=== PATIENT | male | born 1995 | race African-American/Black ===

== ENCOUNTER 2017-03-26 23:49 | Emergency (ER) | payer SELFPAY ==
[~2017-03-26] VITALS: Ht 177.8 cm; Wt 91.0 kg
[~2017-03-26 23:49] MED LIST: HYDR25 PO; MONT10TA2 PO; PRED50 PO; PRIL10CA PO; TRIA.1%T TOP
[2017-03-26 23:51] VITALS: BP 151/92; PULSE 94; RESP 20; TEMP 98.1; O2SAT 94
[2017-03-27] MEDS ORDERED: ALBUAER3 INH ×4 (00:12→02:26)
[2017-03-27] MEDS ORDERED: ADVA100A INH ×2 (00:12)
[2017-03-27] MEDS ORDERED: ALBU0.08 NEB ×2 (00:12)
[2017-03-27] MEDS ORDERED: MONT10TA2 PO ×2 (00:12)
[2017-03-27] MEDS ORDERED: predniSONE 50 MG TAB PO ONE ×2 (00:15)
[2017-03-27 00:18] VITALS: O2SAT 95
[2017-03-27] MEDS: RESP: ALBUTEROL 2.5 MG/IPRATROPIUM 0.5 MG NEB (SCH) INH ×2 (00:18)
--- NOTE | 2017-03-27 02:22 | PD ---
HPI Chief Complaint: Chest Pain Time Seen by Provider: 00:10 Travel History International Travel<30 days: No Contact w/Intl Traveler<30days: No Traveled to known affect area: No History of Present Illness HPI This is a 21-year-old male who presents to the emergency department with breath , constant, moderate severity, described as wheezing associated with a productive cough with some clear sputum. He denies any fevers or chills. He has a history of asthma and currently is out of his prescriptions. He says his been hospitalized for his asthma in the past but never intubated. PFSH Past Medical History Hx Anticoagulant Therapy: No Asthma: Yes Cardiovascular Problems: No Chemotherapy: No Cerebrovascular Accident: No Diabetes: No Diminished Hearing: No Respiratory: Yes (ASTHMA) Immunizations Current: Yes Tetanus Vaccination: Unknown Influenza Vaccination: No Past Surgical History Eye Surgery: Yes (BILAT CATARACT REMOVAL) Social History Alcohol Use: Yes Tobacco Use: Yes Substance Use: Yes (MARIJUANA) Allergies-Medications (Allergen,Severity, Reaction): Coded Allergies: penicillin G (Unverified Allergy, Unknown, 03/26/17) Reported Meds & Prescriptions Reported Meds & Active Scripts Active Reported Albuterol Neb (Albuterol Sulfate) 2.5 Mg/3 Ml Neb 2.5 Mg NEB Q4HR NEB PRN Proair Hfa 8.5 GM Inh (Albuterol Sulfate) 90 Mcg/Act Aer 2 Puff INH Q4-6H PRN 108 mcg/actuation Advair Diskus Inh (Fluticasone-Salmeterol Inh) 100-50 Mcg/Blist Aer Unknown Dose INH BID Rinse mouth after use. Singulair (Montelukast Sodium) 10 Mg Tab 10 Mg PO HS Review of Systems Except as stated in HPI: all other systems reviewed are Neg Physical Exam Narrative GENERAL:Well appearing, no acute distress SKIN: Focused skin assessment warm and dry. HEAD: Atraumatic. Normocephalic. EYES: Pupils equal and round. No injection or drainage. ENT: Moist mucous membranes NECK: Trachea midline. CARDIOVASCULAR: Regular rate and rhythm. No murmur appreciated. RESPIRATORY: Diffuse wheezing. GASTROINTESTINAL: Abdomen soft, non-tender, nondistended. MUSCULOSKELETAL: No obvious deformities. NEUROLOGICAL: Awake and alert. No obvious cranial nerve deficits. Moving all extremities. PSYCHIATRIC: Appropriate mood and affect; insight and judgment normal. Data Data Last Documented VS Vital Signs Date Time Temp Pulse Resp B/P (MAP) Pulse Ox O2 Delivery O2 Flow Rate FiO2 03/27/17 00:18 95 21 03/27/17 00:12 22 Room Air 03/26/17 23:51 98.1 94 151/92 (111) Orders Orders Prednisone (Deltasone) (03/27/17 00:15) Albuterol-Ipratropium Neb (Duoneb Neb) (03/27/17 00:15) MDM Medical Decision Making Medical Screen Exam Complete: Yes Emergency Medical Condition: Yes Interpretation(s) Afebrile, mild tachycardia, hypertensive Differential Diagnosis Acute asthma exacerbation, pneumonia, bronchitis Narrative Course This is a 21-year-old male who presents to the emergency department with an acute asthma exacerbation. He is diffusely wheezing on arrival with no hypoxia. He was given serial bronchodilator treatments and prednisone and his reassessment is much improved. Patient will be discharged home. Diagnosis Primary Impression: Acute asthma exacerbation Qualified Codes: J45.901 - Unspecified asthma with (acute) exacerbation Patient Instructions: General Instructions Additional Instructions: If you develop severe shortness of breath, chest pain, or difficulty breathing return to the emergency department. Use albuterol every 4 hours for the next 2 days. Then use as needed for wheezing. Complete your course of steroids. Follow up with your primary care physician in 2-3 days if your symptoms have not improved. Med/Other Pt SpecificInfo: Prescription(s) given Scripts Albuterol 8.5 GM Inh (Proair Hfa 8.5 GM Inh) 90 Mcg/Act Aer 2 PUFF INH Q4-6H Y for SHORTNESS OF BREATH, #1 INHALER 0 Refills 108 mcg/actuation Prov: Yany Santiago MD 03/27/17 Prednisone (Prednisone) 20 Mg Tab 40 MG PO DAILY, #10 TAB 0 Refills Take 40 mg (2 tablets) daily for 5 days Prov: Yany Santiago MD 03/27/17 Disposition: 01 DISCHARGE HOME Condition: Stable Yany Santiago MD Mar 27, 2017 02:22
[2017-03-27] MEDS ORDERED: PRED20 PO ×2 (02:26)
== END 2017-03-27 02:33 | disposition home or self-care (01) ==
LOC: NEPE 23:49
DX: J45.901 Unspecified asthma with (acute) exacerbation (principal); Z72.0 Tobacco use
CPT/HCPCS: 94640; 94664; 99285; J7512

== ENCOUNTER 2017-05-27 10:23 | Emergency (ER) | payer SELFPAY ==
[~2017-05-27] VITALS: Ht 172.7 cm; Wt 82.0 kg
[~2017-05-27 10:23] MED LIST changes: +ADVA100A INH; +ALBU0.08 NEB; +ALBUAER3 INH; -HYDR25 PO; +PRED20 PO; -PRED50 PO; -PRIL10CA PO; -TRIA.1%T TOP
[2017-05-27 10:26] VITALS: BP 173/81; PULSE 102; RESP 26; TEMP 96.7; O2SAT 96
[2017-05-27] MEDS ORDERED: RESP: ALBUTEROL 2.5 MG/IPRATROPIUM 0.5 MG NEB (SCH) ONE (10:43)
[2017-05-27 10:51] VITALS: BP 166/86; PULSE 82; RESP 20; O2SAT 100
[2017-05-27] MEDS ORDERED: SODIUM CHLORIDE 0.9% FLUSH 10 ML FLUSH IVF PRN (11:15)
[2017-05-27] MEDS ORDERED: methylPREDNISolone SOD SUCC 125 MG/2 ML VIAL IM ONE (11:15)
[2017-05-27] MEDS ORDERED: RESP: ALBUTEROL 2.5 MG/3 ML NEB (SCH) INH ONE (11:15)
[2017-05-27] MEDS ORDERED: RESP: ALBUTEROL 2.5 MG/IPRATROPIUM 0.5 MG NEB (SCH) INH ONE (11:15)
--- NOTE | 2017-05-27 11:39 | RADRPT ---
EXAM DATE/TIME: 05/27/2017 11:16 [facility] COMPARISON: No previous studies available for comparison. INDICATIONS : Chest pain. MEDICAL HISTORY : None. SURGICAL HISTORY : None. ENCOUNTER: Initial ACUITY: 1 week PAIN SCORE: 6/10 LOCATION: middle chest. FINDINGS: 2 AP portable erect views of the chest demonstrates the lungs to be symmetrically aerated without mayra dence of mass, infiltrate or effusion. The cardiomediastinal contours are unremarkable. Osseous str uctures are intact. CONCLUSION: No acute disease. Chito Stone MD on May 27, 2017 at 11:37 Board Certified Radiologist. This report was verified electronically.
[2017-05-27 11:40] VITALS: BP 166/86; PULSE 72; RESP 20; O2SAT 100
[2017-05-27] MEDS ORDERED: MEDR4PAK PO (11:48)
[2017-05-27] MEDS ORDERED: ZITHTAB PO (11:48)
[2017-05-27] MEDS ORDERED: ALBUAER3 INH (11:48)
--- NOTE | 2017-05-27 11:52 | PD ---
HPI Chief Complaint: Respiratory Distress Time Seen by Provider: 10:55 Travel History International Travel<30 days: No Contact w/Intl Traveler<30days: No Traveled to known affect area: No History of Present Illness HPI 22-year-old male with history of asthma, presents here with asthma exacerbation. Patient states over the last 2 days he's had progressive shortness of breath with wheezing. He also reports productive cough with yellow -green phlegm. He denies any fevers, chills. He denies any dizziness. He denies any chest pain, chest pressure. The patient states he lost his inhaler. He denies tobacco use but does report marijuana use. PFSH Past Medical History Hx Anticoagulant Therapy: No Asthma: Yes Cardiovascular Problems: No Chemotherapy: No Cerebrovascular Accident: No Diabetes: No Diminished Hearing: No Respiratory: Yes (ASTHMA) Immunizations Current: Yes Influenza Vaccination: No Past Surgical History Eye Surgery: Yes (BILAT CATARACT REMOVAL) Social History Alcohol Use: Yes Tobacco Use: Yes Substance Use: Yes (MARIJUANA) Allergies-Medications (Allergen,Severity, Reaction): Coded Allergies: Penicillins (Verified Allergy, Unknown, 05/27/17) penicillin G (Unverified Allergy, Unknown, 05/27/17) Reported Meds & Prescriptions Reported Meds & Active Scripts Active Zithromax Z-Delta (Azithromycin) 250 Mg Dspk 250 Mg PO DIRECTED 500 MG (2 tabs) day 1, then 1 tab days 2-5. Medrol Dosepak (Methylprednisolone) 4 Mg Dspk 4 Mg PO DIRECTED Per Pharmacist direction Proair Hfa 8.5 GM Inh (Albuterol Sulfate) 90 Mcg/Act Aer 2 Puff INH Q4-6H PRN 108 mcg/actuation Proair Hfa 8.5 GM Inh (Albuterol Sulfate) 90 Mcg/Act Aer 2 Puff INH Q4-6H PRN 108 mcg/actuation Prednisone 20 Mg Tab 40 Mg PO DAILY Take 40 mg (2 tablets) daily for 5 days Reported Albuterol Neb (Albuterol Sulfate) 2.5 Mg/3 Ml Neb 2.5 Mg NEB Q4HR NEB PRN Advair Diskus Inh (Fluticasone-Salmeterol Inh) 100-50 Mcg/Blist Aer Unknown Dose INH BID Rinse mouth after use. Singulair (Montelukast Sodium) 10 Mg Tab 10 Mg PO HS Review of Systems Except as stated in HPI: all other systems reviewed are Neg General / Constitutional: No: Fever, Chills HENT: No: Headaches, Lightheadedness Cardiovascular: No: Palpitations Respiratory: Positive: Cough, Shortness of Breath (productive yellow-green phlegm), Wheezing Gastrointestinal: No: Nausea, Vomiting, Abdominal Pain Musculoskeletal: No: Weakness, Pain Neurologic: No: Weakness, Headache Physical Exam Narrative GENERAL: Well-nourished, well-developed patient, in mild respiratory discomfort. SKIN: Focused skin assessment warm/dry. HEAD: Normocephalic last atraumatic. EYES: No scleral icterus. No injection or drainage. NECK: Supple, trachea midline. No JVD or lymphadenopathy. CARDIOVASCULAR: Regular rate and rhythm without murmurs, gallops, or rubs. RESPIRATORY: Fine wheezes heard at the lower lung vance. No Rales appreciated. GASTROINTESTINAL: Abdomen soft, non-tender, nondistended. MUSCULOSKELETAL: No cyanosis, or edema. NEUROLOGICAL: Awake and alert. Cranial nerves II through XII intact. Motor and sensory grossly within normal limits. Five out of 5 muscle strength in all muscle groups. Normal speech. Data Data Last Documented VS Vital Signs Date Time Temp Pulse Resp B/P (MAP) Pulse Ox O2 Delivery O2 Flow Rate FiO2 05/27/17 10:51 82 20 166/86 (112) 100 Nasal Cannula 2.00 05/27/17 10:26 96.7 Orders Orders Albuterol-Ipratropium Neb (Duoneb Neb) (05/27/17 10:43) Iv Access Insert/Monitor (05/27/17 11:08) Ecg Monitoring (05/27/17 11:08) Oximetry (05/27/17 11:08) Oxygen Administration (05/27/17 11:08) Chest, Single Ap (05/27/17 11:08) Sodium Chloride 0.9% Flush (Ns Flush) (05/27/17 11:15) Albuterol-Ipratropium Neb (Duoneb Neb) (05/27/17 11:15) Albuterol Neb (Albuterol Neb) (05/27/17 11:15) Methylprednisolone So Succ Inj (Solumedr (05/27/17 11:15) MDM Medical Decision Making Medical Screen Exam Complete: Yes Emergency Medical Condition: Yes Differential Diagnosis Asthma exacerbation versus acute bronchitis versus pneumonia versus pneumothorax Narrative Course 22-year-old male with history of asthma, presents here with asthma exacerbation. The patient has wheezing on exam. Chest x-ray shows no evidence of acute infiltrate or pneumothorax. He's been given site Medrol 125 mg IM times one dose. He is also been given 3 nebulizer treatments. He feels much improved. He is no longer tachypneic. He'll be discharged with a prescription for Proventil inhaler as well as a Medrol Dosepak. He also be given azithromycin given his green yellow phlegm. Diagnosis Primary Impression: Bronchitis Additional Impression: History of asthma Additional Instructions: Please try and stop smoking Med/Other Pt SpecificInfo: Prescription(s) given Scripts Azithromycin (Zithromax Z-Delta) 250 Mg Dspk 250 MG PO DIRECTED for Infection, #1 DSPK 0 Refills 500 MG (2 tabs) day 1, then 1 tab days 2-5. Prov: Jon Robertson MD 05/27/17 Methylprednisolone Dosepak (Medrol Dosepak) 4 Mg Dspk 4 MG PO DIRECTED, #1 DSPK 0 Refills Per Pharmacist direction Prov: Jon Robertson MD 05/27/17 Albuterol 8.5 GM Inh (Proair Hfa 8.5 GM Inh) 90 Mcg/Act Aer 2 PUFF INH Q4-6H Y for SHORTNESS OF BREATH, #1 INHALER 0 Refills 108 mcg/actuation Prov: Jon Robertson MD 05/27/17 Disposition: 01 DISCHARGE HOME Condition: Serious Jon Robertson MD May 27, 2017 11:52
[2017-05-27 12:11] VITALS: BP 135/87
== END 2017-05-27 12:13 | disposition home or self-care (01) ==
LOC: NEPC 10:23
DX: J45.901 Unspecified asthma with (acute) exacerbation (principal); F12.90 Cannabis use, unspecified, uncomplicated; Z72.0 Tobacco use
CPT/HCPCS: 71010; 94664; 96372; 99284; J2930; J7613

== ENCOUNTER 2017-11-08 11:54 | Emergency (ER) | payer SELFPAY ==
[~2017-11-08] VITALS: Ht 172.7 cm; Wt 82.0 kg
[~2017-11-08 11:54] MED LIST changes: +MEDR4PAK PO; +ZITHTAB PO
[2017-11-08 11:56] VITALS: BP 136/79; PULSE 95; RESP 16; TEMP 97.1; O2SAT 99
[2017-11-08 12:53] LABS: AUTOMATED NEUTROPHIL # 3.8 TH/MM3 (1.8-7.7); BASOPHIL # 0.1 TH/MM3 (0-0.2); BASOPHIL % 0.9 % (0.0-2.0); EOSINOPHIL # 0.2 TH/MM3 (0-0.4); EOSINOPHIL % 2.9 % (0.0-4.0); HEMOGLOBIN 16.5 GM/DL (13.0-17.0); LYMPH % 28.3 % (9.0-44.0); MEAN CELL VOLUME 88.4 FL (80.0-100.0); MEAN CORPUSCULAR HEMOGLOBIN 29.8 PG (27.0-34.0); MEAN CORPUSCULAR HGB CONC 33.7 % (32.0-36.0); MEAN PLATELET VOLUME 10.1 FL (7.0-11.0); MONO % 12.8 % (0.0-8.0); MONOCYTE # 0.9 TH/MM3 (0-0.9); NEUT % 55.1 % (16.0-70.0); PLATELET COUNT 375 TH/MM3 (150-450); RED BLOOD COUNT 5.54 MIL/MM3 (4.50-5.90); RED CELL DISTRIBUTION WIDTH 13.9 % (11.6-17.2)
[2017-11-08] MEDS ORDERED: VIST50CA PO (13:04)
[2017-11-08] MEDS ORDERED: ZOFR4TAB3 SL (13:04)
[2017-11-08 13:08] LABS: BICARBONATE 25.8 MEQ/L (21.0-32.0); CALCIUM 8.9 MG/DL (8.5-10.1); CREATININE 0.99 MG/DL (0.60-1.30)
--- NOTE | 2017-11-08 13:09 | PD ---
HPI Chief Complaint: Anxiety Time Seen by Provider: 11:59 Travel History International Travel<30 days: No Contact w/Intl Traveler<30days: No Traveled to known affect area: No History of Present Illness HPI 22-year-old male that presents to the ED for evaluation of possible anxiety. Per patient today he woke up and felt nauseous and vomited. Per patient he attributes this to a stress and anxiety. Per patient he feels stress at work and this has increased which has increased his nausea and vomiting when he wakes up. Per patient he over thinks things. He denies any suicidal homicidal ideation. He denies ever been diagnosed with anything. Per patient he has no outpatient follow up. He does have a history of asthma and he does tell me that he does smoke marijuana but no other drugs. He states that marijuana helps calm him down. Denies drinking alcohol. No smoking cigarettes. Denies any chest pain or shortness of breath. Per patient he feels that he does not sleep well through the night because he feels like his mind will not shut down. He denies any symptoms at this time. Per patient he does want a note for work so he can go back to work tomorrow. She apparently has some issues with the law as well and is apparently in probation. He has an allergy to penicillin. No other medical issues reported. Has never been on medications for anxiety. PFSH Past Medical History Hx Anticoagulant Therapy: No Asthma: Yes Cardiovascular Problems: No Chemotherapy: No Cerebrovascular Accident: No Diabetes: No Diminished Hearing: No Medical other: Yes (ALLERGIES) Respiratory: Yes (ASTHMA) Immunizations Current: Yes Tetanus Vaccination: < 5 Years Influenza Vaccination: No Past Surgical History Eye Surgery: Yes (BILAT CATARACT REMOVAL) Social History Alcohol Use: Yes (OCC) Tobacco Use: No Substance Use: Yes (MARIJUANA) Allergies-Medications (Allergen,Severity, Reaction): Coded Allergies: Penicillins (Verified Allergy, Unknown, 11/08/17) penicillin G (Unverified Allergy, Unknown, 11/08/17) Reported Meds & Prescriptions Reported Meds & Active Scripts Active Zofran Odt (Ondansetron Odt) 4 Mg Tab 4 Mg SL Q6HR PRN Vistaril (Hydroxyzine Pamoate) 50 Mg Cap 50 Mg PO QID PRN Proair Hfa 8.5 GM Inh (Albuterol Sulfate) 90 Mcg/Act Aer 2 Puff INH Q4-6H PRN 108 mcg/actuation Reported Albuterol Neb (Albuterol Sulfate) 2.5 Mg/3 Ml Neb 2.5 Mg NEB Q4HR NEB PRN Review of Systems Except as stated in HPI: all other systems reviewed are Neg Physical Exam Narrative GENERAL: SKIN: Warm and dry. HEAD: Atraumatic. Normocephalic. EYES: Pupils equal and round. No scleral icterus. No injection or drainage. ENT: No nasal bleeding or discharge. Mucous membranes pink and moist. Tongue is midline. No uvula deviation. NECK: Trachea midline. No JVD. CARDIOVASCULAR: Regular rate and rhythm. No murmurs, S3, S4. RESPIRATORY: No accessory muscle use. Clear to auscultation. Breath sounds equal bilaterally. GASTROINTESTINAL: Abdomen soft, non-tender, nondistended. Hepatic and splenic margins not palpable. MUSCULOSKELETAL: Extremities without clubbing, cyanosis, or edema. No obvious deformities. Full range of motion of the upper and lower extremities bilaterally. 2+ pulses bilaterally. NEUROLOGICAL: Awake and alert. No obvious cranial nerve deficits. Motor grossly within normal limits. Five out of 5 muscle strength in the arms and legs. Normal speech. PSYCHIATRIC: Appropriate mood and affect; insight and judgment normal. Data Data Last Documented VS Vital Signs Date Time Temp Pulse Resp B/P (MAP) Pulse Ox O2 Delivery O2 Flow Rate FiO2 11/08/17 12:16 18 11/08/17 11:56 97.1 95 136/79 (98) 99 Orders Orders Complete Blood Count With Diff (11/08/17 12:07) Basic Metabolic Panel (Bmp) (11/08/17 12:07) Thyroid Stimulating Hormone (11/08/17 12:07) Labs Laboratory Tests Test 11/08/17 12:13 White Blood Count 7.0 TH/MM3 Red Blood Count 5.54 MIL/MM3 Hemoglobin 16.5 GM/DL Hematocrit 49.0 % Mean Corpuscular Volume 88.4 FL Mean Corpuscular Hemoglobin 29.8 PG Mean Corpuscular Hemoglobin Concent 33.7 % Red Cell Distribution Width 13.9 % Platelet Count 375 TH/MM3 Mean Platelet Volume 10.1 FL Neutrophils (%) (Auto) 55.1 % Lymphocytes (%) (Auto) 28.3 % Monocytes (%) (Auto) 12.8 % Eosinophils (%) (Auto) 2.9 % Basophils (%) (Auto) 0.9 % Neutrophils # (Auto) 3.8 TH/MM3 Lymphocytes # (Auto) 2.0 TH/MM3 Monocytes # (Auto) 0.9 TH/MM3 Eosinophils # (Auto) 0.2 TH/MM3 Basophils # (Auto) 0.1 TH/MM3 CBC Comment DIFF FINAL Differential Comment MDM Medical Decision Making Medical Screen Exam Complete: Yes Emergency Medical Condition: Yes Medical Record Reviewed: Yes Interpretation(s) CBC & BMP Diagram 11/08/17 12:13 Differential Diagnosis Anxiety versus nausea and vomiting versus mood disorder versus substance abuse Narrative Course 22-year-old male the presents to the ED for evaluation of possible anxiety. Patient was properly examined and was found to have signs and symptoms consistent with what appears to be anxiety. We will do basic blood work to rule out any sign of acute disease as patient felt that he was nauseous and vomited this morning. Labs within normal limits. Likely anxiety. Will give patient a trial of Vistaril as well as Zofran to help with symptoms. Patient was told that if anything worsens she is to come back to the ED. Given note for work. I strongly recommend that he follows with outpatient psychiatrist or primary care doctor for further evaluation and treatment of his anxiety. I suspect that the marijuana might have something to do with this as well. Otherwise follow-up with PCP. See ED if worsening symptoms. Diagnosis Primary Impression: Anxiety Referrals: [facility] Patient Instructions: General Instructions Departure Forms: Tests/Procedures, Work Release Enter return to work date: Nov 09, 2017 Additional Instructions: Take medications as prescribed. Follow-up with PCP. See ED if worsening symptoms. Med/Other Pt SpecificInfo: Prescription(s) given Scripts Ondansetron Odt (Zofran Odt) 4 Mg Tab 4 MG SL Q6HR Y for Nausea/Vomiting, #15 TAB 0 Refills Prov: Emeterio Bearden MD 11/08/17 Hydroxyzine Pamoate (Vistaril) 50 Mg Cap 50 MG PO QID Y for ANXIETY, #20 CAP 0 Refills Prov: Emeterio Bearden MD 11/08/17 Disposition: 01 DISCHARGE HOME Condition: Stable Zac Smiley Nov 08, 2017 13:09
== END 2017-11-08 14:30 | disposition home or self-care (01) ==
LOC: NEPC 11:54
DX: F41.9 Anxiety disorder, unspecified (principal); F12.90 Cannabis use, unspecified, uncomplicated; J45.909 Unspecified asthma, uncomplicated; Z88.0 Allergy status to penicillin
CPT/HCPCS: 80048; 84443; 85025; 99283